=== PATIENT | male | born 1980 | race Native Hawaiian/Other Pacific Islander ===

== ENCOUNTER 2020-12-09 07:47 | Outpatient (CLI) | payer OTHER | END 2020-12-09 20:03 | disposition home or self-care (01) | LOC: LAB 07:47 | PROVIDERS: ATTEND Nurse Practitioner Family | DX: R05 Cough (principal); R43.0 Anosmia; R53.83 Other fatigue; Z11.59 Encounter for screening for other viral diseases | CPT/HCPCS: 87635; G2023; U0003 ==

== ENCOUNTER 2021-06-27 16:21 | Emergency (ER) | payer OTHER ==
[~2021-06-27] VITALS: Ht 170.2 cm; Wt 68.0 kg
[2021-06-27 16:21] VITALS: BP 126/85; TEMP 98
== END 2021-06-27 17:38 | disposition home or self-care (01) ==
LOC: ED 16:21
PROC: 3E0U3BZ Introduction of Anesthetic Agent into Joints, Percutaneous Approach (ICD-10-PCS; principal; 2021-06-27)
PROC: 3E0U33Z Introduction of Anti-inflammatory into Joints, Percutaneous Approach (ICD-10-PCS; 2021-06-27)
DX: M70.62 Trochanteric bursitis, left hip (principal)
CPT/HCPCS: 99283; J1100; J3490